=== PATIENT | female | born 1975 | race Hispanic/Latino ===

== ENCOUNTER 2018-12-19 09:10 | Emergency (ER) | payer OTHER, SELFPAY ==
[2018-12-19 09:43] LABS: #Basophils 0.1 thou/uL (0.0-0.2); #Eosinphils 0.1 thou/uL (0.0-0.7); #Lymphocytes 1.6 thou/uL (1.20-3.40); #Monocytes 0.6 thou/uL (0.11-0.59); #Neutrophils 9.6 thou/uL (1.40-6.50); %Basophils 0.4 % (0.0-1.0); %Eosinophils 1.1 % (0.0-10.0); %Lymphocytes 13.2 % (21.0-51.0); %Monocytes 5.2 % (0.0-10.0); Hemoglobin 13.1 g/dL (12.0-16.0); Mean Corpuscular HGB CONC 34.7 g/dL (32.0-36.0); Mean Corpuscular Hemoglobin 28.4 pg (27.0-31.0); Mean Corpuscular Volume 81.7 fL (78.0-98.0); Mean Platelet Volume 8.2 fL (7.4-10.4); Platelet Count 279 thou/uL (130-400); RBC Distribution Width 11.9 % (11.5-14.5)
[2018-12-19 09:57] LABS: BHCG - Serum Negative (NEGATIVE); Pregs Control Background? CLEAR/WHITE (CLR/WHITE); Pregs Control Bar Appear? YES (CONTROL BAR)
[2018-12-19 10:03] LABS: ALT (SGPT) 21 U/L (8-55); AST (SGOT) 13 U/L (5-34); Albumin 4.1 g/dL (3.5-5.0); Alkaline Phosphatase 91 U/L (40-110); Anion Gap 13 mmol/L (10-20); BUN (Urea Nitrogen) 13 mg/dL (7.0-18.7); Bilirubin, Total 0.3 mg/dL (0.2-1.2); Calc. Creatinine Clearance 0 mL/min (70-130); Carbon Dioxide 18 mmol/L (22-29); Chloride 104 mmol/L (98-107); Estimated GFR-MDRD 87; Globulin 3.1 g/dL (2.4-3.5); Glucose 346 mg/dL (70-105); Potassium 3.9 mmol/L (3.5-5.1); Protein, Total 7.2 g/dL (6.0-8.3); Sodium 131 mmol/L (136-145)
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
[2018-12-19] MEDS ORDERED: Ketorolac Tromethamine 30 MG/ML VIAL ONE (11:17)
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
== END 2018-12-19 11:36 | disposition home or self-care (01) ==
LOC: ERS 09:10
DX: M25.511 Pain in right shoulder (principal); R51 Headache; R10.813 Right lower quadrant abdominal tenderness; V49.9XXA Car occupant (driver) (passenger) injured in unspecified traffic accident, initial encounter
CPT/HCPCS: 36415; 70450; 71260; 72125; 74177; 80053; 84703; 85025; 96374; J1885